=== PATIENT | male | born 1995 | race African-American/Black ===

== ENCOUNTER 2019-04-11 15:57 | Emergency (ER) | payer OTHER ==
[~2019-04-11] VITALS: Ht 170.2 cm; Wt 86.4 kg
[2019-04-11] MEDS ORDERED: ZYRTTAB8 PO (16:08)
--- NOTE | 2019-04-11 16:59 | REP ---
Clinical: Trauma/injury. Technique: AP, lateral, bilateral oblique views of the right knee. Findings: No obvious acute fracture or dislocation is appreciated. No effusion. No subcutaneous emphysema. Impression: No obvious acute fracture dislocation. Examination is somewhat limited by positioning. If the patient remains symptomatic consider CT or MRI for further investigation. Electronically Signed by Sherwin De Jesus MD 04/11/2019 04:51 P
[2019-04-11] MEDS ORDERED: MORPHINE 2 MG/ML 1ML SYRINGE (J2270) IV PRN (17:45)
--- NOTE | 2019-04-11 18:27 | REPVR ---
EXAM: CT Right Lower Extremity Without Contrast, Knee EXAM DATE/TIME: 04/11/2019 5:52 PM CLINICAL HISTORY: 23 years old, male; Pain and injury or trauma; Fall; Initial encounter; Blunt trauma; Knee; Right; Additional info: Pain, fall TECHNIQUE: Imaging protocol: CT of the Right lower extremity without contrast was performed. Exam focused on the knee. Coronal and sagittal reformatted images were created and reviewed. Radiation optimization: All CT scans at this facility use at least one of these dose optimization techniques: automated exposure control; mA and/or kV adjustment per patient size (includes targeted exams where dose is matched to clinical indication); or iterative reconstruction. COMPARISON: CR Knee, complete 04/11/2019 4:35 PM FINDINGS: Bones/joints: Moderate joint effusion. Tiny chip type fracture at the intercondylar notch near the anterior root insertion of the lateral meniscus. Small benign lesion in the posterior cortex of distal femur. There is a moderate suprapatellar joint effusion. IMPRESSION: 1. There is a moderate joint effusion. 2. Small cortical chip type fracture fragments at the anterior intercondylar notch anterior root insertion of the lateral meniscus. Electronically signed by: Cheikh Valdez On 04/11/2019 18:27:17 PM
[2019-04-11] MEDS ORDERED: PERCOCET 5MG/325MG TAB PO ONE (18:30)
[2019-04-11] MEDS ORDERED: KETOROLAC 60 MG/2 ML VIAL (J1885) IM ONE (19:15)
[2019-04-11 19:17] VITALS: BP 171/87
[2019-04-11] MEDS ORDERED: IBUP-1022 PO (19:19)
== END 2019-04-11 20:16 | disposition home or self-care (01) ==
LOC: M ED 15:57
DX: S84.11XA Injury of peroneal nerve at lower leg level, right leg, initial encounter (principal); W01.0XXA Fall on same level from slipping, tripping and stumbling without subsequent striking against object, initial encounter; Y92.9 Unspecified place or not applicable; Y93.39 Activity, other involving climbing, rappelling and jumping off; M21.371 Foot drop, right foot; M25.461 Effusion, right knee